=== PATIENT | female | born 1975 | race Caucasian/White ===

== ENCOUNTER 2017-09-07 13:22 | Day surgery (SDC) | payer OTHER ==
[2017-09-07] MEDS ORDERED: CEFAZOLIN 2 GM/50 ML (PMX) 50 ML IVPB (13:30)
[2017-09-07] MEDS ORDERED: LACTATED RINGER'S 1,000 ML IV* (13:30)
[2017-09-07] MEDS ORDERED: CEFAZOLIN 1 GM INJ (15:00)
[2017-09-07] MEDS ORDERED: PROPOFOL 200 MG INJ (15:00)
[2017-09-07] MEDS ORDERED: MIDAZOLAM 1 MG/ML 2 ML INJ (15:00)
[2017-09-07] MEDS ORDERED: METOCLOPRAMIDE 10 MG INJ (15:00)
[2017-09-07] MEDS ORDERED: ONDANSETRON 4 MG INJ (15:00)
[2017-09-07] MEDS ORDERED: FENTAnyl 50 MCG/ML VIAL (15:00)
[2017-09-07] MEDS ORDERED: LIDOCAINE 1% (MPF) 30 ML INJ (15:17)
[2017-09-07] MEDS ORDERED: BUPIVACAINE 0.25% (MPF) 30 ML INJ (15:17)
[2017-09-07] MEDS ORDERED: HYDROmorphONE (0.2 MG/ML) 10ML SYG IV ×2 (16:00)
[2017-09-07] MEDS ORDERED: DIPHENHYDRAMINE 50 MG INJ IV (16:00)
[2017-09-07] MEDS ORDERED: OXYCODONE/ACETAMINOPHEN (5/325) TAB PO (16:00)
[2017-09-07] MEDS ORDERED: ONDANSETRON 4 MG INJ IV (16:00)
[2017-09-07] MEDS: MEPERIDINE 25 MG INJ IV (16:33)
[2017-09-07] MEDS: HYDROmorphONE (0.2 MG/ML) 10ML SYG IV ×2 (16:44→16:56)
[2017-09-07] MEDS: OXYCODONE/ACETAMINOPHEN (5/325) TAB PO (18:05)
== END 2017-09-07 18:45 | disposition home or self-care (01) ==
LOC: SDS 13:22
DX: G56.02 Carpal tunnel syndrome, left upper limb (principal); M67.432 Ganglion, left wrist; E11.9 Type 2 diabetes mellitus without complications; J45.909 Unspecified asthma, uncomplicated
CPT/HCPCS: 25111; 82962; 88304